=== PATIENT | female | born 1955 | race Caucasian/White ===

== ENCOUNTER 2018-07-06 06:53 | Day surgery (SDC) | payer BC ==
[2018-07-06] MEDS ORDERED: LIDOCAINE HCL 1% MPF 30 SOL ONE (07:47)
[2018-07-06] MEDS ORDERED: PROPOFOL 500 MG/50 ML EMU IV ONE (07:47)
[2018-07-06 08:52] VITALS: TEMP 99.3
[2018-07-06 09:09] VITALS: RESP 20; O2SAT 97
[2018-07-06 09:20] VITALS: BP 176/73; PULSE 78
== END 2018-07-06 09:24 | disposition home or self-care (01) ==
LOC: SURG 06:53
PROVIDERS: ATTEND Internal Medicine Gastroenterology
DX: Z12.11 Encounter for screening for malignant neoplasm of colon (principal); E11.9 Type 2 diabetes mellitus without complications; Z80.0 Family history of malignant neoplasm of digestive organs; Z86.010 Personal history of colon polyps; D12.0 Benign neoplasm of cecum; D12.5 Benign neoplasm of sigmoid colon; D12.3 Benign neoplasm of transverse colon; K64.8 Other hemorrhoids
CPT/HCPCS: 82962; 99001; J2001; J2704